=== PATIENT | female | born 1960 | race Caucasian/White ===

== ENCOUNTER 2017-01-08 21:51 | Emergency (ER) | payer MEDICARE ==
[2015-07-01 14:04] VITALS: BMI 20.7
[~2017-01-08 21:51] MED LIST: CLARITIN-D1 TAB.SR1 PO; DHEA25 M1 PO; HUMALOG 30100 UNITS/ SC; HUMALOG MIX 75/10 ML SC; HYDRALAZINE HCL50 MG PO; PHENERGAN25 M1 PO; RENVELA800 MG PO; ULTRAM50 MG PO
[2017-01-09 01:11] LABS: HEMATOCRIT 36.1 % (36.0-48.0); HEMOGLOBIN 11.9 g/dL (12-16); LYMPHOCYTES 19.5 % (15-50); MEAN PLATELET VOLUME 10.1 fL (7.4-10.4); NEUTROPHILS 69.3 % (40-80); PLATELET COUNT 230 10x3/uL (130-400); RBC 3.61 10x6/uL (4.00-5.40); RDW 12.9 % (11.5-14.5); WBC 6.8 10x3/uL (4.8-10.8)
[2017-01-09 01:23] LABS: ANION GAP 18.1 mmol/L (8-16); CALCIUM 9.6 mg/dL (8.5-10.1); CARBON DIOXIDE 29.6 mmol/L (21.0-32.0); CREATININE - SERUM 8.5 mg/dL (0.6-1.3); POTASSIUM - SERUM 4.7 mmol/L (3.5-5.1)
== END 2017-01-09 03:37 | disposition left against medical advice (07) ==
LOC: OBSVTIME → D.ER 21:51 → D.M2 01-09 01:43 → OBSVTIME 01-09 01:43 → D.ER 01-09 03:37
PROVIDERS: Emergency Medicine Emergency Medical Services
DX: M19.90 Unspecified osteoarthritis, unspecified site (principal); I12.9 Hypertensive chronic kidney disease with stage 1 through stage 4 chronic kidney disease, or unspecified chronic kidney disease; N18.9 Chronic kidney disease, unspecified; E11.9 Type 2 diabetes mellitus without complications; Z79.4 Long term (current) use of insulin; F17.200 Nicotine dependence, unspecified, uncomplicated

== ENCOUNTER 2017-01-30 07:45 | Day surgery (SDC) | payer MEDICARE ==
[~2017-01-30] VITALS: Ht 154.9 cm; Wt 54.4 kg
--- NOTE | 2017-01-30 09:03 | NUR ---
SPOKE WITH [facility] (ARABELLA JEAN BAPTISTE) TO FAX HER LATEST PROCEDURE RECORDS.
[2017-01-30] MEDS ORDERED: FOSRENOL1000 MG PO (09:21)
[2017-01-30] MEDS ORDERED: VERAPAMIL PO (09:23)
[2017-01-30] MEDS ORDERED: HYDROCODONE-APA1 TAB PO (09:23)
[2017-01-30] MEDS ORDERED: SENSIPAR30 MG PO (09:24)
[2017-01-30] MEDS ORDERED: AMBIEN5 MG PO (09:24)
[2017-01-30 09:31] VITALS: BP 175/73; Ht 154.9 cm; Wt 54.4 kg
[2017-01-30 11:26] LABS: BASOPHILS 0.1 % (0-2); EOSINOPHILS 5.4 % (0-7); HEMATOCRIT 39.3 % (36.0-48.0); IMMATURE GRANULOCYTES 0.1 % (0-5); LYMPHOCYTES 14.8 % (15-50); MCH 33.6 pg (26.0-34.0); MCHC 33.1 g/dL (31.0-37.0); MCV 101.6 fL (80.0-100.0); MONOCYTES 8.9 % (2-11); NEUTROPHILS 70.7 % (40-80); PLATELET COUNT 255 10x3/uL (130-400); RBC 3.87 10x6/uL (4.00-5.40); RDW 12.9 % (11.5-14.5); WBC 6.7 10x3/uL (4.8-10.8)
[2017-01-30 11:36] LABS: ANION GAP 18.1 mmol/L (8-16); CALCIUM 9.6 mg/dL (8.5-10.1); CARBON DIOXIDE 27.1 mmol/L (21.0-32.0); CREATININE - SERUM 9.3 mg/dL (0.6-1.3); POTASSIUM - SERUM 4.2 mmol/L (3.5-5.1)
[2017-01-30 11:46] LABS: APTT 33.1 SECONDS (22.8-39.4); INR 1.03 (0.85-1.17); PROTIME 13.3 SECONDS (11.6-15.0)
--- NOTE | 2017-01-30 16:05 | NUR ---
PATIENT COMPLAINS OF CHRONIC PAIN IN BACK RATED AT 10 ON 0-10 SCALE, REPORTS NO PAIN IN LEFT ARM. PATIENT TAKES A HYDROCODONE PILL FROM HOME AT THIS TIME FOR THIS CHRONIC PAIN
--- NOTE | 2017-01-30 16:30 | NUR ---
PATIENT STATES PAIN IN BACK IS IMPROVING, RATES NOW AT 6 ON 0-10 SCALE
--- NOTE | 2017-01-30 16:55 | NUR ---
DISCHARGE INSTRUCTIONS REVIEWED WITH PATIENT AND SPOUSE, PATIENT DISCHARGED HOME VIA WHEELCHAIR TO PRIVATE VEHICLE WITH SPOUSE, PATIENT AWAKE, ALERT, NO COMPLAINTS
--- NOTE | 2017-02-02 12:50 | OP ---
PATIENT NAME: RACIEL PRADO MEDICAL RECORD: [id number] :62 LOCATION:[facility] ADMISSION DATE: SURGEON: PETR VELEZ MD DATE OF OPERATION: 01/30/2017 She is operated and dictated today as an outpatient on 01/30/2017. 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 OPERATION PERFORMED: Left upper extremity AV fistulogram and balloon angioplasty of brachiocephalic venous stenosis via the dialysis circuit. SURGEON: Petr Velez MD. ANESTHESIA: General with LMA per DESIGN CENTER CONSULTANT. PREOPERATIVE NOTE: Ms. Prado is a 56-year-old white female, diabetic with end-stage renal disease, presently on dialysis and has been dialyzing for about 5 years with a left upper extremity brachiocephalic AV fistula. She has had problems with stenosis both within the cephalic vein and particularly in the cephalic arch and brachiocephalic vein. She has had previous angioplasties and has had a stent placed in the cephalic arch. She once again has rising venous pressures and hyperpulsatile fistula, no doubt having some recurrent central vein stenosis. She is brought to the operating room for fistulogram today. She was scheduled to have this done yesterday at the outpatient ambulatory surgery center, but Dr. Williamson was unable to make it back to [facility] and so she was scheduled to have this done here today. The patient was administered a general anesthetic with an LMA per DESIGN CENTER CONSULTANT and then prepped and draped in a sterile manner. The fistula was accessed percutaneously through an area of cannulation aneurysmal change was done with micropuncture technique and a 7-[place] introducer was inserted. Contrast injection revealed no evidence of stenosis within the body or venous outflow via cephalic vein. There was no recurrent stenosis of the cephalic arch. There was, however, a very tight 90% diameter reducing or greater stenosis of the brachiocephalic vein, right at the confluence with the right and left brachial cephalic veins. With outflow occlusion and repeat contrast injection, the arterial limb of the fistula and juxta-anastomotic segment and arterial anastomosis and brachial artery above and below the anastomosis were visualized. There was no evidence of stenosis or any problem there. Over a 0.035 angled Glidewire, I then dilated the brachiocephalic venous stenosis with a 12 mm diameter at less angioplasty balloon, it achieved full effacement at relatively low pressures, but repeated contrast injection after deflation of the balloon revealed recurrent elastic recoil of the stenosis. The balloon was inflated several more times, and kept inflated for 2 minute intervals and finally with the last contrast injection, OPERATIVE REPORT [id number] RACIEL PRADO the residual stenosis was only about 50% still hemodynamically significant, but there was some improvement. This area will require stenting, I believe. We did not have a 12 or 14 mm balloon expandable stent and I would like to check to see if we can get one of those before using a self-expanding stent in this location. We will discuss this further with Dr. Williamson and consider whether this needs to be done in the operating room or more perhaps in radiology by interventional radiologist. I was able to manipulate the guidewire and glide catheter up into the right brachiocephalic vein and right subclavian vein. Contrast injection there revealed no evidence of stenosis of the right subclavian or right brachiocephalic vein or superior vena cava. The instrumentation and hardware was removed, hemostasis at the puncture site obtained with a [id number] 4-0 Prolene and a period of gentle direct digital pressure. A dressing of Ultrafoam, Tegaderm, and Cavilon skin prep was applied and the patient awakened and taken to recovery in stable condition. Blood loss of about 5 cc was unreplaced. All sponges, instruments and needles were accounted for. No drain was used and no surgical specimen was submitted for histopathology. PLAN: The patient will be going home today, to return to [place] and continue her home medications and her usual dialysis schedule. Meanwhile, we will determine what type of stent can be obtained for placement in her left brachiocephalic venous stenosis. TRANSINT:[id number] Voice Confirmation ID: [id number] DOCUMENT ID: [id number] PETR VELEZ MD at 1250 CC: ASHLY WILLIAMSON MD [id number] DICTATION DATE: 01/30/17 1528 REFURBISH TECHNICIAN: 01/30/17 2245 [facility] 01/30/[address] [facility] [address] [place] [address]
== END 2017-01-30 16:55 | disposition home or self-care (01) ==
LOC: D.OPS 07:45
PROVIDERS: Surgery
DX: T82.590A Other mechanical complication of surgically created arteriovenous fistula, initial encounter (principal); I87.302 Chronic venous hypertension (idiopathic) without complications of left lower extremity; I87.1 Compression of vein; E10.22 Type 1 diabetes mellitus with diabetic chronic kidney disease; E10.39 Type 1 diabetes mellitus with other diabetic ophthalmic complication; N18.6 End stage renal disease; Z99.2 Dependence on renal dialysis; Z01.812 Encounter for preprocedural laboratory examination

== ENCOUNTER 2017-04-13 08:50 | Day surgery (SDC) | payer MEDICARE, MEDICAID ==
[~2017-04-13] VITALS: Ht 154.9 cm; Wt 54.4 kg
[~2017-04-13 08:50] MED LIST changes: +AMBIEN5 MG PO; +FOSRENOL1000 MG PO; +HYDROCODONE-APA1 TAB PO; +SENSIPAR30 MG PO; +VERAPAMIL PO
[2017-04-13 09:55] LABS: BASOPHILS 0.3 % (0-2); EOSINOPHILS 3.6 % (0-7); HEMOGLOBIN 11.2 g/dL (12-16); IMMATURE GRANULOCYTES 0.1 % (0-5); LYMPHOCYTES 11.5 % (15-50); MCH 32.9 pg (26.0-34.0); MCV 102.9 fL (80.0-100.0); MEAN PLATELET VOLUME 10.3 fL (7.4-10.4); MONOCYTES 7.4 % (2-11); NEUTROPHILS 77.1 % (40-80); PLATELET COUNT 235 10x3/uL (130-400); RDW 12.8 % (11.5-14.5); WBC 7.2 10x3/uL (4.8-10.8)
[2017-04-13 10:00] LABS: CALCIUM 9.1 mg/dL (8.5-10.1); CARBON DIOXIDE 29.4 mmol/L (21.0-32.0); CREATININE - SERUM 5.2 mg/dL (0.6-1.3); INR 1.03 (0.85-1.17); POTASSIUM - SERUM 3.4 mmol/L (3.5-5.1); PROTIME 13.4 SECONDS (11.6-15.0)
[2017-04-13 10:01] LABS: APTT 35.1 SECONDS (22.8-39.4)
[2017-04-13 11:14] VITALS: Ht 154.9 cm; Wt 54.4 kg
--- NOTE | 2017-04-13 11:42 | NUR ---
1120--PT'S GLUCOSE IS 65 ACCORDING TO LAB THIS A.M. PT STATES SHE JUST TOOK HER BLOOD SUGAR AND IT WAS 88 AND DOESNT WANT TO BE RECHECKED. PT REPORTS EATING HARD CANDY TO BRING HER BLOOD SUGAR UP, REPORT GIVEN TO ANESTHESIA. LUCIA RN
--- NOTE | 2017-04-13 16:06 | NUR ---
THE PATIENT REPORTS SHE HAS CHRONIC BACK PAIN AND TAKES NORCO EVERY FEW HOURS. [facility]EN[facility] ADMIN FOR PAIN.
--- NOTE | 2017-04-13 18:16 | NUR ---
1625 BACK FROM LT ARM FISTULOGRAM AND STENT. DRESSING C/D/I NO BLEEDING OR SWELLING. DENIES PAIN OR NAUSEA.FEEL A THRILL AND HEAR A BRUIT.
--- NOTE | 2017-04-13 18:22 | NUR ---
1655 TOLERATED FULL LIQUIDS LEFT ARM NO BLEEDING GODD BRUIT AND THRILL.
--- NOTE | 2017-04-13 18:23 | NUR ---
1725 GOOD BRUIT AND THRILL IV DCD CATHETER INTACT. DISCHARGE INSTRUCTIONS GONE OVER.
--- NOTE | 2017-04-13 18:23 | NUR ---
1730 TO HOME VIA W/C WITH SPOUSE.
--- NOTE | 2017-04-14 09:03 | OP ---
PATIENT NAME: RACIEL PRADO MEDICAL RECORD: [id number] :62 LOCATION:[facility] ADMISSION DATE: SURGEON: PETR VELEZ MD DATE OF OPERATION: 04/13/2017 REFERRING PHYSICIAN: Dr. Darin Prado and Dr. Williamson. PREOPERATIVE DIAGNOSES: End-stage renal disease independence on hemodialysis and mechanical complication of left arm arteriovenous fistula and vein compression with central vein stenosis involving the left brachiocephalic vein. POSTOPERATIVE DIAGNOSIS: Also includes intrastent stenosis in the left cephalic arch. OPERATION PERFORMED: Left arm fistulogram with angioplasty of the intrastent stenosis in the cephalic arch and stenting and angioplasty of the left brachiocephalic vein stenosis. SURGEON: Petr Velez MD ANESTHESIA: Local 2% lidocaine without epinephrine and MAC or TIVA per INFORMATICS SPECIALIST. PREOPERATIVE NOTE: Ms. Prado is a 56-year-old white female patient with diabetes and end-stage renal disease, as well as coronary artery disease and hypertension. She is on chronic dialysis with a left proximal radial or brachial artery to cephalic vein fistula. She has had problems of the cephalic arch stenosis and has had angioplasties there and has a stent in the cephalic arch. She also was noted on her last angiogram, which I did an OPC to have a near occlusion of the left brachiocephalic vein at the confluence of the brachiocephalic veins to form the vena cava. I have recommended that she have a balloon expandable stent placed in the brachiocephalic vein and it will hopefully be large enough at least 14 mm diameter, so as to allow access for possible future HeRO outflow device. With the patient under IV sedation and monitored per INFORMATICS SPECIALIST in supine position, the left arm and both groins were prepped and draped in a sterile manner. The groins were prepped in order to be able to do a femoral approach to the brachiocephalic vein if necessary. The fistula was accessed with micropuncture technique, point in the upper half of the arm above the areas of aneurysmal deterioration. Contrast injection with digital subtraction technique demonstrated about a 60% intrastent stenosis in the cephalic arch and the previously known left brachiocephalic vein stenosis had recurred to about 70% diameter stenosis. I cross these lesions with a Glidewire and placed the Glidewire in the inferior vena cava and then used an 8 mm diameter angioplasty balloon to dilate the intrastent stenosis in the cephalic arch. I achieved full effacement of the balloon and afterwards, repeat contrast injection revealed resolution of stenosis. I performed a wire exchange and parked a stiffer wire in the inferior vena cava and then performed another digital subtraction angiogram and roadmap and then used a [place] DBX 11 x 39 PTFE covered balloon expandable stent. It was expanded to 14 mm in diameter. This stented the brachiocephalic stenosis and completion angiography revealed an excellent result with very precise placement of the stent and good size match. Flow in the central veins and fistula was faster and the fistula itself palpably less pulsatile. The hardware was removed. The patient had had 8-Moldovan sheath placed, replacing this initial 6-Moldovan sheath. Hemostasis at that site was OPERATIVE REPORT [id number] RACIEL PRADO achieved with a period of direct pressure and a single [id number] 4-0 Prolene suture which will need to be removed tomorrow at dialysis. There was no blood loss during the procedure and all sponges, instruments, and needles were accounted for. No drain was used and no specimen was submitted for histopathology. Ms. ____ will be able to go home later today. She lives to [place], [place]. There is no need for her to return to see me in my office for routine followup, but I have recommended that she have a repeat angiogram performed at [facility] in 3 months and of course before that if there is an indication. TRANSINT:[id number] Voice Confirmation ID: [id number] DOCUMENT ID: [id number] PETR VELEZ MD at 0903 CC: ASHLY WILLIAMSON MD and NANNETTE PRADO MD [id number] DICTATION DATE: 04/13/17 1619 PACKAGING COORDINATOR: 04/13/17 2350 [facility] 04/13/17 [facility] [address] [place] [address]
== END 2017-04-13 17:30 | disposition home or self-care (01) ==
LOC: D.OPS 08:50
PROVIDERS: Surgery
DX: T82.858A Stenosis of other vascular prosthetic devices, implants and grafts, initial encounter (principal); T82.590A Other mechanical complication of surgically created arteriovenous fistula, initial encounter; T82.856A Stenosis of peripheral vascular stent, initial encounter; I87.1 Compression of vein; E11.22 Type 2 diabetes mellitus with diabetic chronic kidney disease; I12.0 Hypertensive chronic kidney disease with stage 5 chronic kidney disease or end stage renal disease; N18.6 End stage renal disease; Z99.2 Dependence on renal dialysis; I25.10 Atherosclerotic heart disease of native coronary artery without angina pectoris; Z01.812 Encounter for preprocedural laboratory examination